=== PATIENT | female | born 1950 | race American Indian/Alaskan Native ===

== ENCOUNTER 2016-11-13 06:06 | Day surgery (SDC) | payer MEDICARE ==
[2016-11-01 12:59] VITALS: BMI 29.6
[2016-11-13] MEDS ORDERED: Lidocaine 2% Inj (20ml) ONE (06:43)
[2016-11-13 06:49] LABS: ADD MANUAL DIFF? NO
[2016-11-13 07:04] LABS: BLOOD UREA NITROGEN 10 mg/dL (7-21); CALCIUM 8.9 mg/dL (8.4-10.5); CARBON DIOXIDE 26 mmol/L (21-33); CHLORIDE 104 mmol/L (98-107); GFR AFRICAN-AMERICAN > 60; GLUCOSE,RANDOM 142 mg/dL (70-110); SODIUM 139 mmol/L (132-148)
[2016-11-13 07:07] LABS: INR 0.96 (0.93-1.08); PARTIAL THROMBOPLASTIN TIME 26.1 Seconds (23.7-30.8)
[2016-11-13 07:19] LABS: BASO # 0.02 K/mm3 (0.0-2.0); BASO % 0.2 % (0.0-3.0); EOS # 0.2 (0.0-0.7); EOS % 2.8 % (1.5-5.0); GRAN # 4.75 (1.4-6.5); GRAN % 55.1 % (50.0-68.0); HEMATOCRIT 39.4 % (36.0-48.0); LYMPH % 34.6 % (22.0-35.0); MEAN CORPUSCULAR HEMOGLOBIN 31.5 pg (25.0-35.0); MEAN CORPUSCULAR HGB CONC 33.5 g/dl (31.0-37.0); MEAN PLATELET VOLUME 10.9 fl (7.0-11.0); MONO # 0.6 (0.1-0.6); MONO % 7.3 % (1.0-6.0); PLATELET COUNT 306 10^3/uL (120.0-450.0); RED CELL DISTRIBUTION WIDTH 13.5 % (11.5-14.5); WHITE BLOOD COUNT 8.6 10^3/ul (4.5-11.0)
[2016-11-13] MEDS ORDERED: Midazolam 2 MG/2 ML VIAL ONE ×2 (07:40→07:52)
[2016-11-13] MEDS ORDERED: Sodium Chloride 0.9% 1,000 ML IV SCH (08:30)
[2016-11-13 09:01] VITALS: TEMP 97.8
--- NOTE | 2016-11-13 10:30 | CARDCATH ---
PROCEDURE DATE: 11/13/2016 HISTORY: The patient is a 66-year-old woman with multiple cardiac risk factors including hypertensio n and hypercholesterolemia who presents with chest pain. A stress test was abnormal. Because of thi s, a cardiac catheterization was recommended. PROCEDURE: Left heart catheterization with coronary angiography and left ventriculogram. The right femoral artery was cannulated with a 6-[place]ogol[place] sheath. There were no complications. The findings on catheterization revealed a left ventricle that contracted normally. Estimated ejecti on fraction is 70%. Her coronary anatomy revealed a left main artery that was unremarkable. The LAD and diagonal vessels were unremarkable. The circumflex artery and obtuse marginal branches were free of significant disease. The right coronary artery was selectively cannulized and found to be a dominant vessel. The RCA was unremarkable. The patient tolerated the procedure well. Manual compression was used to close the femoral artery site. SUMMARY: 1. The procedure revealed unremarkable coronary arteries with no critical lesions. 2. Left ventricular function is normal. Given these findings, the patient's cardiac status is stable. She should continue her cardiac risk r eduction program in which I have outlined to the patient in detail. Sandor Reis MD cc: [id number] TT: 11/13/2016 10:29:24 tn
[2016-11-13 10:50] VITALS: RESP 18
[2016-11-13 10:51] VITALS: O2SAT 98
[2016-11-13 13:15] VITALS: BP 146/73; PULSE 78
--- NOTE | 2016-11-13 20:00 | CARD ---
APPROVED REPORT EKG Measurement Heart [id number] <Conclusion> Normal sinus rhythm Nonspecific T wave abnormality Abnormal ECG
== END 2016-11-13 15:15 | disposition home or self-care (01) ==
LOC: CATH 06:06
PROVIDERS: ATTEND Internal Medicine Cardiovascular Disease
DX: R07.9 Chest pain, unspecified (principal); I10 Essential (primary) hypertension; E78.00 Pure hypercholesterolemia, unspecified; R94.39 Abnormal result of other cardiovascular function study
CPT/HCPCS: 36415; 80048; 85025; 85610; 85730; 86850; 86900; 93005; 93458; 99152; C1769; C2629; J1644; J2250; J3010; J7040; Q9967